=== PATIENT | male | born 1985 | race Caucasian/White ===

== ENCOUNTER 2019-04-17 12:44 | Inpatient (IN) ==
[2019-04-17] MEDS ORDERED: FAMOTIDINE 20MG/5ML IV PUSH IV STA (14:30)
[2019-04-17] MEDS ORDERED: GI COCKTAIL ED USE PO ONE (14:30)
--- NOTE | 2019-04-17 14:48 | XRay Report ---
XR chest 1V portable CLINICAL HISTORY: Atypical chest pain COMPARISON STUDY: No previous studies for comparison. FINDINGS: The heart is normal in size. There is no lobar consolidation. There is subtle interstitial thickening with a basilar predominance. There is no overt failure. There are no pleural effusions.[ IMPRESSION: Subtle nonspecific interstitial thickening with a basilar predominance. No evidence of lo bar consolidation Electronically signed by: Familia Graves M.D. 04/17/2019 2:47 PM
[2019-04-17] MEDS: SODIUM CHLORIDE 0.9% 1000ML 1,000 ML IV SCH ×3 (14:53→20:49)
[2019-04-17 14:54] LABS: Basophils # (auto) 0.06 K/uL (0-0.2); Basophils % (auto) 0.3 %; Eosinophils # (auto) 0.62 K/uL (0-0.5); Eosinophils % (auto) 3.4 %; Hematocrit (blood only) 43.4 % (42-52); Hemoglobin 14.7 g/dL (14.0-18.0); Immature Granulocytes # (auto) 0.04 K/uL (0.00-0.02); Immature Granulocytes % (auto) 0.2 %; Lymphocytes # (auto) 1.74 K/uL (1.2-3.4); Lymphocytes % (auto) 9.7 %; Mean Corpuscular Hemoglobin 31.1 pg (25-34); Mean Corpuscular Hgb Conc 33.9 g/dL (32-36); Mean Corpuscular Volume 91.9 fL (80-100); Mean Platelet Volume 11.1 fL (7.4-10.4); Monocytes # (auto) 1.08 K/uL (0.11-0.59); Neutrophils # (auto) 14.48 K/uL (1.4-6.5); Neutrophils % (auto) 80.4 %; Platelet Count 268 K/uL (130-400); RDW Coefficient of Variation 12.1 % (11.5-14.5); RDW Standard Deviation 41.4 fL (36.4-46.3); Red Blood Count 4.72 M/uL (4.7-6.1); White Blood Count 18.02 K/uL (4.8-10.8)
[2019-04-17 15:12] LABS: Albumin Level 3.9 gm/dl (3.4-5.0); BUN Creatinine Ratio 20.9 (10-20); Calcium 9.6 mg/dl (8.5-10.1); Creatinine Clr Calc Pharmacy 113.1 ml/min; Est GFR (African American) 109.3; Est GFR (Non-African American) 94.3; Potassium 3.8 mmol/L (3.5-5.1)
[2019-04-17 15:15] LABS: Albumin Globulin Ratio 1.4 (0.9-2); Bilirubin,Total 0.8 mg/dl (0.2-1); Globulin 2.8 gm/dl (2.5-4.0); Total Protein 6.7 gm/dl (6.4-8.2)
[2019-04-17] MEDS ORDERED: IOVERSOL 100ml IV PRN (15:48)
--- NOTE | 2019-04-17 16:04 | CT Scan Report ---
CT abd pelvis IV con only CLINICAL HISTORY: 34 years-old Male presenting with Vomiting blood. TECHNIQUE: Multidetector CT of the abdomen and pelvis was performed after the administration of intra venous contrast. IV contrast: 93 mL of Optiray 320. One or more dose lowering techniques were used co nsistent with the principles of ALARA (as low as reasonably achievable), including automatic exposure control, mA or kV adjustment to individual patient size, and/or use of iterative reconstruction. COMPARISON: None. CT DOSE (mGy.cm): The estimated cumulative dose is 519.10 mGy.cm. FINDINGS: Joint Supervisor topogram: Unremarkable. Lung bases: Normal heart size. No pericardial or pleural effusion. Patchy peribronchovascular groundg lass opacity at the lung bases, which may relate to the phase of respiration, atelectasis, or minimal infiltrate. Liver: Normal morphology. No liver lesion. Patent hepatic vasculature. Biliary: No intrahepatic or extrahepatic biliary ductal dilatation. Normal gallbladder. Pancreas: Normal. Spleen: Normal. Adrenal glands: Normal. Kidneys and ureters: Punctate nonobstructing calculus in the right kidney normal renal parenchyma. No hydronephrosis. Ureters nondistended. Bladder: Incompletely evaluated secondary to underdistention. Pelvic organs: Prostate and seminal vesicles normal. Bowel: Normal appendix. No bowel obstruction. Small sliding type hiatal hernia. Mild apparent circumf erential distal esophageal wall thickening versus decompressed hernia sac. No hyperdense intraluminal contents within the stomach or proximal small bowel allowing for bowel distention. Peritoneal cavity: No free fluid or intraperitoneal gas. Lymph nodes: Several prominent portacaval lymph nodes, nonspecific. No pathologically enlarged lymph nodes in the abdomen or pelvis. Vasculature: Aorta and IVC patent and normal in caliber. Abdominal wall: Normal. Musculoskeletal: Normal. IMPRESSION: 1. Small sliding-type hiatal hernia with mild circumferential distal esophageal wall thickening. Thi s could relate to a nonspecific esophagitis or instead apparent wall thickening in the presence of th e hiatal hernia. 2. No convincing evidence of gastroesophageal hemorrhage allowing for bowel distention an limitation s in the sensitivity of CT. 3. Punctate nonobstructing right renal calculus. 4. Patchy peribronchovascular groundglass opacity at the lung bases could relate to the phase of res piration, atelectasis, or minimal infiltrate such as aspiration. Electronically signed by: Lester Paige M.D. 04/17/2019 4:03 PM
[2019-04-17] MEDS ORDERED: PANTOprazole 80 MG in DEXTROSE 5% 100 ML IV ONE (17:00)
[2019-04-17] MEDS ORDERED: ONDANSETRON INJ 2 MG/ML 2 ML VIAL IV PRN (17:20)
[2019-04-17] MEDS ORDERED: ACETAMINOPHEN 325 MG TAB PO PRN (17:20)
--- NOTE | 2019-04-17 17:23 | History & Physical Report ---
Date of Service April 17, 2019 Assessment & Plan (1) Upper gastrointestinal bleed: 34-year-old man presents with hematemesis and melena consistent with upper GI bleed. He is hemodynamically stable and orthostatics are negative. Etiology includes but not limited to a combination of gamf-gnj-kmvgagr Excedrin use in the setting of binge drinking on the weekends and regular smoking. Hiatal hernia noted on imaging. Plan for PPI drip overnight with IV fluids. Keep n.p.o. overnight until seen by GI. Trend H&H. He is not in need of a blood transfusion at this time. (2) Smoking: Advised to stop smoking as it is bad for his health. He declined nicotine patch (3) Alcohol use: Binge drinking habits reported. Will monitor closely for signs of withdrawal. (4) Adjustment disorder: Continue fluoxetine per outpatient regimen. (5) DVT prophylaxis: SCDs, chemoprophylaxis contraindicated in the setting of acute bleed. Full code Disposition-to telemetry DO Omar [place] Hospitalist History of Present Illness Chief Complaint: hematemesis Primary Care Provider: NO PCP 34-year-old man presents with 2 days of hematemesis and black tarry stool as well as discomfort in his epigastric region. He reports heavy drinking on the weekends only including 6-7 drinks at one time. He otherwise denies illicit drug use. He is a smoker reporting approximately 1 pack of cigarettes per week. He also takes Excedrin zgdj-dhu-nnyzonb at least once weekly for headaches. He recently took Excedrin after vomiting a blackish color substance 2 nights ago after drinking. Subsequently they black tarry stool presented itself. He is not orthostatic in the ER. He is otherwise hemodynamically stable. He denies any nausea but is not interested in food. He reports eating to crackers and staying off work today from feeling ill. He denies any other njds-add-rtaaitc or herbal supplement use. He denies any history of GI bleeding in the past. He has no family history of GI bleeding that is known to him. Review of systems otherwise reveals a headache. Allergies Allergy/AdvReac Type Severity Reaction Status Date / Time No Known Allergies Allergy Unverified 04/17/19 15:58 Home Medications Home Medications Medication Instructions Recorded Confirmed Type qkmnhjt-tqirrznpjzcch-sgdmkxmz 2 tab PO UD 04/17/19 04/17/19 History [Excedrin Extra Strength] fluoxetine 40 mg PO QAM 04/17/19 04/17/19 History Past Med/Surg History Medical History Adjustment disorder with depressed mood (Chronic) No known health problems (Resolved) Family History Father Bladder cancer Other No significant family history Social History Preferred Language: [place] marital status: Current Living Situation: Spouse current occupational status: employed current occupation: [employer] Feels Safe at Home: Yes Smoking Status: Current every day smoker Hx Alcohol Use: Yes Hx Substance Use: Yes (History of heroin abuse per records) Review of Systems Review of Systems: All systems reviewed & are unremarkable except as noted in HPI & below Physical Exam Physical Exam: CONSTITUTIONAL: WNWD, vitals as above, generally well- appearing EYES: PERRL, normal conjunctivae, no scleral icterus ENT: MMM NECK: trachea midline RESPIRATORY: clear to auscultation bilaterally, no crackles, rales or wheezes, normal respiratory effort GASTROINTESTINAL: normal bowel sounds, soft, nontender, nondistended MUSCULOSKELETAL: strength 5/5 throughout, head is normocephalic and atraumatic SKIN: warm and dry NEUROLOGIC: CN 2-12 grossly intact, no sensory deficit, normal cognition, normal speech, no gross focal deficits PSYCHIATRIC: alert cooperative and oriented to person, place and time. Results & Data Vital Signs (Past 12 Hours) Vital Signs Temp Pulse Pulse Resp BP BP Pulse Ox 04/17/19 16:35 64 18 128/83 97 04/17/19 15:15 75 18 128/78 100 04/17/19 13:12 36.4 C L 84 17 154/88 H 93 Laboratory Results Short CBC 04/17/19 Range/Units 14:44 WBC 18.02 H (4.8-10.8) K/uL Hgb 14.7 (14.0-18.0) g/dL Hct 43.4 (42-52) % Plt Count 268 (130-400) K/uL BMP 04/17/19 14:44 Sodium 138 Potassium 3.8 Chloride 103 Carbon Dioxide 30 BUN 22 H Creatinine 1.03 Glucose 90 Calcium 9.6 Cardiac Enzymes 04/17/19 Range/Units 14:44 Troponin I 0.022 (0-0.045) ng/ml Liver Function 04/17/19 Range/Units 14:44 Total Bilirubin 0.8 (0.2-1) mg/dl AST 14 L (15-37) U/L ALT 26 (12-78) U/L Alkaline Phosphatase 90 (45-117) U/L Albumin 3.9 (3.4-5.0) gm/dl Diagnostic Findings CT a/p: IMPRESSION: 1. Small sliding-type hiatal hernia with mild circumferential distal esophageal wall thickening. This could relate to a nonspecific esophagitis or instead apparent wall thickening in the presence of the hiatal hernia. 2. No convincing evidence of gastroesophageal hemorrhage allowing for bowel distention an limitations in the sensitivity of CT. 3. Punctate nonobstructing right renal calculus. 4. Patchy peribronchovascular ground glass opacity at the lung bases could relate to the phase of respiration, atelectasis, or minimal infiltrate such as aspiration. XR chest 1V portable CLINICAL HISTORY: Atypical chest pain COMPARISON STUDY: No previous studies for comparison. FINDINGS: The heart is normal in size. There is no lobar consolidation. There is subtle interstitial thickening with a basilar predominance. There is no overt failure. There are no pleural effusions.[ IMPRESSION: Subtle nonspecific interstitial thickening with a basilar predominance. No evidence of lobar consolidation Medications Administered Current Inpatient Medications Acetaminophen (Tylenol) 650 mg PO Q4H PRN PRN Reason: Pain or Fever Stop: 05/17/19 17:19 Fluoxetine HCl (Prozac) 40 mg PO QAM [facility] Stop: 05/18/19 08:59 Pantoprazole Sodium 40 mg/ (Dextrose) 100 mls @ 20 mls/hr IV Q5H TYRA Stop: 05/17/19 17:14 Ioversol (Optiray 320 100ml) 93 ml IV ONCE PRN PRN Reason: Interaction Checking Stop: 04/21/19 15:47 Last Admin: 04/17/19 15:48 Dose: 93 ml Documented by: Ondansetron HCl (Zofran) 4 mg IV Q6H PRN PRN Reason: Nausea Stop: 05/17/19 17:19 Code Status & VTE Plan Code Status Full Code VTE Prophylaxis Plan VTE Prophylaxis will be ordered: Yes
[2019-04-17] MEDS ORDERED: ACETAMINOPHEN 325 MG TAB ONE (18:03)
[2019-04-17] MEDS: PANTOprazole 40 MG in DEXTROSE 5% 100 ML IV SCH ×2 (18:23→23:59)
--- NOTE | 2019-04-17 19:41 | Emergency Department Note ---
Entered by Elidia Booth acting as a scribe for History of Present Illness General Chief complaint: Vomiting Stated complaint: BLACK VOMIT/HEARTBURN Source: patient History of Present Illness Onset (ago): day(s) (last night) Location: abdomen Pain Consistency: + intermittent Maximum Pain Intensity: 4 Quality: + other (vomiting) Associated symptoms: + chest pain and + other (melena, hematemesis, burping) The patient is a 34 year old male who presents to the Emergency Room with complaints of intermittent vomiting starting last night. The patient states that yesterday morning he had a bowel movement of melena. He states that then last night he started vomiting blood. He reports that it was dark like coffee grounds. He reports that he has vomited 4 times like that and in total had a cup of dark vomit. The patient states that then in the middle of the night he woke up with a burning lower middle chest pain. He states that he thought it was heart burn as he has been nonstop burping, but antacids only offer mild relief. He reports that intermittently this morning he has also had shortness of breath. He states that that it feels like he cannot get enough air in. He states that his was concerned and had him call his PCP today. He states that when he tried to make an appointment, they sent him here. The patient notes that he has not moved his bowels since yesterday and that he drinks alcohol only on the wee kends. The patient denies use of blood thinners, a history of a colonoscopy, a history of an EGD, use of steroids, and a daily use of NSAIDs. Home Medications Home Medications Medication Instructions Recorded Confirmed Type qwjrkjf-qpypamklyapsi-zqedodtz 2 tab PO UD 04/17/19 04/17/19 History [Excedrin Extra Strength] fluoxetine 40 mg PO QAM 04/17/19 04/17/19 History Allergies Allergy/AdvReac Type Severity Reaction Status Date / Time No Known Allergies Allergy Unverified 04/17/19 15:58 Past Med/Surg History Medical History Adjustment disorder with depressed mood (Chronic) No known health problems (Resolved) Family History Father Bladder cancer Other No significant family history Social History Preferred Language: [place] Citizen marital status: Current Living Situation: Spouse current occupational status: employed current occupation: Landscaping Feels Safe at Home: Yes Smoking Status: Current every day smoker Hx Alcohol Use: Yes Hx Substance Use: Yes (History of heroin abuse per records) Review of Systems See HPI for pertinent positives & negatives. and A total of 10 systems reviewed and were otherwise negative Physical Exam Vital Signs Vital Signs - 24 hr 04/17/19 13:12 04/17/19 15:15 04/17/19 16:35 Temperature 36.4 C L Temperature Source Oral Sepsis Recent Fever Within 48 Hours No Sepsis New/Unexplained Change in Mental Status No Sepsis Action Taken by Nursing No Action Required Pulse Rate 84 Pulse Rate [Finger] 75 64 Pulse Strength Normal Respiratory Rate 17 18 18 Respiratory Effort / Characteristics Non-Labored Respiratory Depth Normal Respiratory Pattern Regular Blood Pressure 154/88 H Blood Pressure [Right Arm] 128/78 128/83 Blood Pressure Mean 110 Blood Pressure Mean [Right Arm] 94 98 Pulse Oximetry 93 100 97 Oxygen Delivery Method Room Air Room Air Room Air 04/17/19 18:11 Temperature Temperature Source Sepsis Recent Fever Within 48 Hours Sepsis New/Unexplained Change in Mental Status Sepsis Action Taken by Nursing Pulse Rate Pulse Rate [Finger] 62 Pulse Strength Respiratory Rate 20 Respiratory Effort / Characteristics Respiratory Depth Respiratory Pattern Blood Pressure Blood Pressure [Right Arm] 128/91 Blood Pressure Mean Blood Pressure Mean [Right Arm] 103 Pulse Oximetry 98 Oxygen Delivery Method Room Air GENERAL: sitting up in bed, wearing hospital gown, disheveled, no acute distress, nontoxic EYE EXAM: normal conjunctiva, PERRL and EOM's grossly intact OROPHARYNX: no exudate, no erythema, lips, buccal mucosa, and tongue normal and mucous membranes are moist NECK: supple, no nuchal rigidity, no adenopathy, non-tender LUNGS: Clear to auscultation. Normal chest wall mechanics HEART: no murmurs, S1 normal and S2 normal ABDOMEN: abdomen soft, non-tender, normo-active bowel sounds, no masses, no rebound or guarding. RECTAL: Dark stool that is heme positive. BACK: Back is symmetrical on inspection and there is no deformity, no midline tenderness, no CVA tenderness. SKIN: no rashes and no bruising UPPER EXTREMITIES: upper extremities are grossly normal. LOWER EXTREMITIES: No pitting edema. NEURO EXAM: Normal sensorium, cranial nerves II-XII grossly intact, normal speech, no gross weakness of arms, no gross weakness of legs. Course ED COURSE: Vital signs were reviewed and showed situational hypertension. The patients medical record was reviewed The above diagnostic studies were performed and reviewed. ED treatments and interventions as stated above. 1429: The patient was evaluated in room C4. A complete history and physical examination was performed. 1413: I reevaluated the patient and updated him thus far. I preformed a rectal exam at this time. 1622: Upon reevaluation, the patient is resting comfortably. I discussed my findings with the patient and he understands and agrees with the treatment plan. Based on the patients age, coexisting illnesses, exam and lab findings the decision to treat as an outpatient was made. The patient remained stable while under my care. The patient appeared well at the time of discharge. 1636: I discussed the patient's case with Dinorah Sierra PA-C - [facility] Hospitalist. She will evaluate the patient for further management under Dr. Gardner's service. Administered Medications Pantoprazole Sodium 40 mg/ (Dextrose) 100 mls @ 20 mls/hr IV Q5H TYRA Stop: 05/17/19 17:14 Last Admin: 04/17/19 18:23 Dose: 20 mls/hr Documented by: [id number] Ioversol (Optiray 320 100ml) 93 ml IV ONCE PRN PRN Reason: Interaction Checking Stop: 04/21/19 15:47 Last Admin: 04/17/19 15:48 Dose: 93 ml Documented by: [id number] Discontinued Medications Acetaminophen (Tylenol) Confirm Administered Dose 650 mg .ROUTE .STK-MED ONE Stop: 04/17/19 18:04 Last Admin: 04/17/19 18:05 Dose: 650 mg Documented by: [id number] Al Hydrox/Mg Hydrox/Simethicone () 1 dose PO ONE ONE Stop: 04/17/19 14:31 Last Admin: 04/17/19 14:53 Dose: 1 dose Documented by: [id number] Famotidine (Pepcid 20mg Iv Push) 20 mg IV ONE STA Stop: 04/17/19 14:31 Last Admin: 04/17/19 14:53 Dose: 20 mg Documented by: [id number] Sodium Chloride (Nss 1000ml) 1,000 mls @ 999 mls/hr IV .Q1H1M TYRA Stop: 04/17/19 16:30 Last Admin: 04/17/19 18:09 Dose: 999 mls/hr Documented by: [id number] Infusion: 04/17/19 18:05 Dose: 0 mls/hr Documented by: [id number] Admin: 04/17/19 14:53 Dose: 999 mls/hr Documented by: [id number] Pantoprazole Sodium 80 mg/ (Dextrose) 120 mls @ 480 mls/hr IV NOW ONE Stop: 04/17/19 17:14 Last Admin: 04/17/19 18:08 Dose: 480 mls/hr Documented by: [id number] Medical Decision Making Differential Diagnosis Differential diagnoses includes but is not limited to gastritis, peptic ulcer disease, GERD, gallbladder disease, pancreatitis, small bowel obstruction, acute coronary syndrome, pericarditis, ischemic bowel, irritable bowel disease, irritable bowel syndrome, appendicitis, diverticulitis, malignancy, hernia, urinary tract infection, torsion, perforation, trauma, infectious. Medical Records Attestation: I reviewed the patient's medical records. Home Medications Current Medication List: was personally reviewed by me Laboratory Data Attestation: I reviewed the patient's lab results. Result diagrams: 04/17/19 14:44 04/17/19 14:44 Lab Results 04/17/19 04/17/19 04/17/19 Range/Units 14:44 14:44 14:44 WBC 18.02 H (4.8-10.8) K/uL RBC 4.72 (4.7-6.1) M/uL Hgb 14.7 (14.0-18.0) g/dL Hct 43.4 (42-52) % MCV 91.9 (80-100) fL MCH 31.1 (25-34) pg MCHC 33.9 (32-36) g/dL RDW Std Deviation 41.4 (36.4-46.3) fL RDW Coeff of Matt 12.1 (11.5-14.5) % Plt Count 268 (130-400) K/uL MPV 11.1 H (7.4-10.4) fL Immature Gran % (Auto) 0.2 % Neut % (Auto) 80.4 % Lymph % (Auto) 9.7 % Weakley % (Auto) 6.0 % Eos % (Auto) 3.4 % Baso % (Auto) 0.3 % Immature Gran # (Auto) 0.04 H (0.00-0.02) K/uL Neut # (Auto) 14.48 H (1.4-6.5) K/uL Lymph # (Auto) 1.74 (1.2-3.4) K/uL Weakley # (Auto) 1.08 H (0.11-0.59) K/uL Eos # (Auto) 0.62 H (0-0.5) K/uL Baso # (Auto) 0.06 (0-0.2) K/uL Sodium 138 (136-145) mmol/L Potassium 3.8 (3.5-5.1) mmol/L Chloride 103 (98-107) mmol/L Carbon Dioxide 30 (21-32) mmol/L Anion Gap 5.0 (3-11) BUN 22 H (7-18) mg/dl Creatinine 1.03 (0.6-1.4) mg/dl Est Cr Clr Drug Dosing 113.1 ml/min Est GFR ( Amer) 109.3 Est GFR (Non-Af Amer) 94.3 BUN/Creatinine Ratio 20.9 H (10-20) Glucose 90 (70-99) mg/dl Calcium 9.6 (8.5-10.1) mg/dl Total Bilirubin 0.8 (0.2-1) mg/dl AST 14 L (15-37) U/L ALT 26 (12-78) U/L Alkaline Phosphatase 90 (45-117) U/L Troponin I 0.022 (0-0.045) ng/ml Total Protein 6.7 (6.4-8.2) gm/dl Albumin 3.9 (3.4-5.0) gm/dl Globulin 2.8 (2.5-4.0) gm/dl Albumin/Globulin Ratio 1.4 (0.9-2) Lipase 51 L (73-393) U/L Imaging Data Radiologist's Impression: Radiology results as stated below per my review and the radiologist's interpretation: XR chest 1V portable CLINICAL HISTORY: Atypical chest pain COMPARISON STUDY: No previous studies for comparison. FINDINGS: The heart is normal in size. There is no lobar consolidation. There is subtle interstitial thickening with a basilar predominance. There is no overt failure. There are no pleural effusions.[ IMPRESSION: Subtle nonspecific interstitial thickening with a basilar predominance. No evidence of lobar consolidation Electronically signed by: Familia Graves M.D. 04/17/2019 2:[address] abd pelvis IV con only CLINICAL HISTORY: 34 years-old Male presenting with Vomiting blood. TECHNIQUE: Multidetector CT of the abdomen and pelvis was performed after the administration of intravenous contrast. IV contrast: 93 mL of Optiray 320. One or more dose lowering techniques were used consistent with the principles of ALARA (as low as reasonably achievable), including automatic exposure control, mA or kV adjustment to individual patient size, and/or use of iterative reconstruction. COMPARISON: None. CT DOSE (mGy.cm): The estimated cumulative dose is 519.10 mGy.cm. FINDINGS: Esol Teacher topogram: Unremarkable. Lung bases: Normal heart size. No pericardial or pleural effusion. Patchy peribronchovascular groundglass opacity at the lung bases, which may relate to the phase of respiration, atelectasis, or minimal infiltrate. Liver: Normal morphology. No liver lesion. Patent hepatic vasculature. Biliary: No intrahepatic or extrahepatic biliary ductal dilatation. Normal gallbladder. Pancreas: Normal. Spleen: Normal. Adrenal glands: Normal. Kidneys and ureters: Punctate nonobstructing calculus in the right kidney normal renal parenchyma. No hydronephrosis. Ureters nondistended. Bladder: Incompletely evaluated secondary to underdistention. Pelvic organs: Prostate and seminal vesicles normal. Bowel: Normal appendix. No bowel obstruction. Small sliding type hiatal hernia. Mild apparent circumferential distal esophageal wall thickening versus decompressed hernia sac. No hyperdense intraluminal contents within the stomach or proximal small bowel allowing for bowel distention. Peritoneal cavity: No free fluid or intraperitoneal gas. Lymph nodes: Several prominent portacaval lymph nodes, nonspecific. No pathologically enlarged lymph nodes in the abdomen or pelvis. Vasculature: Aorta and IVC patent and normal in caliber. Abdominal wall: Normal. Musculoskeletal: Normal. IMPRESSION: 1. Small sliding-type hiatal hernia with mild circumferential distal esophageal wall thickening. This could relate to a nonspecific esophagitis or instead apparent wall thickening in the presence of the hiatal hernia. 2. No convincing evidence of gastroesophageal hemorrhage allowing for bowel distention an limitations in the sensitivity of CT. 3. Punctate nonobstructing right renal calculus. 4. Patchy peribronchovascular groundglass opacity at the lung bases could relate to the phase of respiration, atelectasis, or minimal infiltrate such as aspiration. Electronically signed by: Lester Paige M.D. 04/17/2019 4:03 PM ECG Data Attestation: I personally reviewed and interpreted this ECG as follows: Indication: other (GI bleed) Rate (beats per minute): 61 Rhythm: sinus rhythm Findings: + other (normal axis, normal intervals); no PVC Blood Pressure Blood Pressure Findings: Elevated blood pressure Blood Pressure Disposition: elevated BP felt to be situational MDM Narrative Patient is a 34-year-old male who presents the ER for hematemesis which occurred on Wednesday. Yesterday he had dark tarry stools. Presents today for epigastric abdominal pain. He denies any history of NSAID abuse, steroid use or heavy drinking. IV was established blood work was obtained. Labs show a leukocytosis of 15,000. No significant anemia. BMP with an elevated BUN. LFTs bilirubin was unremarkable. Troponin was detectable but not positive. Lipase was negative. CT abdomen pelvis shows likely gastritis with a hiatal hernia. Patient was given IV Protonix drip and bolus. Rectally he had dark stools which was heme positive. He was discussed with the hospitalist and admitted for an upper GI bleed. He was given IV fluids as well. He remained stable while in the ER. Impression & Plan Upper gastrointestinal bleed, Hematemesis, Elevated BUN Discharge Plan Visit Data Chief Complaint: Vomiting Stated Complaint: BLACK VOMIT/HEARTBURN ED Provider: Jr Law Discharge Problem: Upper gastrointestinal bleed, Hematemesis, Elevated BUN Patient Disposition: Being Evaluated by Hospitalist Forms Stand Alone Forms: My [facility] Prescriptions Prescriptions: No Action fluoxetine 40 mg capsule 40 mg PO QAM RF: 0 Excedrin Extra Strength 250-250-65 mg Tablet 2 tab PO UD RF: 0 Referrals Referrals: PCP,NO [Primary Care Provider] - Discharge Problem: Hematemesis Qualifiers: Nausea presence: unspecified Qualified Code(s): K92.0 - Hematemesis The scribe's documentation has been prepared under my direction and personally reviewed by me in its entirety. I confirm that the note above accurately reflects all work, treatment, procedures, and medical decision making performed by me.
[2019-04-17 21:22] LABS: Hematocrit (blood only) 37.8 % (42-52); Hemoglobin 13.1 g/dL (14.0-18.0)
[2019-04-18] MEDS: PANTOprazole 40 MG in DEXTROSE 5% 100 ML IV SCH ×3 (04:39→12:38)
[2019-04-18] MEDS: SODIUM CHLORIDE 0.9% 1000ML 1,000 ML IV SCH ×2 (04:40→12:10)
[2019-04-18 05:46] LABS: Hemoglobin 12.3 g/dL (14.0-18.0); Mean Corpuscular Hemoglobin 30.6 pg (25-34); Mean Corpuscular Hgb Conc 33.2 g/dL (32-36); Mean Platelet Volume 10.7 fL (7.4-10.4); Platelet Count 217 K/uL (130-400); RDW Coefficient of Variation 12.2 % (11.5-14.5); RDW Standard Deviation 41.4 fL (36.4-46.3); Red Blood Count 4.02 M/uL (4.7-6.1); White Blood Count 6.91 K/uL (4.8-10.8)
[2019-04-18 06:15] LABS: BUN Creatinine Ratio 13.4 (10-20); Calcium 8.2 mg/dl (8.5-10.1); Creatinine Clr Calc Pharmacy 105.8 ml/min; Est GFR (Non-African American) 87.1; Potassium 3.7 mmol/L (3.5-5.1)
[2019-04-18 08:38] LABS: Appearance Urine Clear (Clear); Bilirubin Urine Negative (Negative); Blood Urine Negative (Negative); Color Urine Yellow; Glucose Urine UA Negative (Negative); Ketones Urine Negative (Negative); Leukocyte Esterase Urine Negative (Negative); Nitrite Urine Negative (Negative); Protein Urine Negative (Negative); Urobilinogen Urine Negative (Negative); pH Urine 6.5 (4.5-7.5)
[2019-04-18] MEDS ORDERED: FLUOXETINE HCL 20 MG CAP PO SCH (09:00)
--- NOTE | 2019-04-18 09:11 | Gastrointestinal Consultation ---
Date of Consultation April 18, 2019 Assessment & Plan (1) Upper gastrointestinal bleed: 34 year old male with epigastric pain, hematemesis/melenatoic stools from Wednesday/Wednesday who presented though the ED last evening for persistent upper abdominal pain - CT w/ ?esophagitis, otherwise negative. He has been hemodynamically stable without further evidence of upper GI bleeding, HGB 12.3 w/o BUN elevation NPO EGD Continue IV PPI Would recommend to slowly reduce ETOH Avoid NSAIDs GERD diet and lifestyle changes Trial PPI therapy, dosage pending outcome of scope Please call with any acute changes, questions or concerns Present on Admission?: Yes Supervising Physician Co-Signing Physician Notes I have performed a history and physical examination of this patient and reviewed the electronic medical record. Specifically, on physical examination there is mild epigastric tenderness. I have discussed the case with GREG Ramirez. The above note reflects my findings, conclusions, and recommendations. Martín Espino MD History of Present Illness Reason for Consultation: hematemesis, melena Requesting Physician: Jj Attending Physician: Sabiha Gardner, History of Present Illness 34 year old male without any past medical history who presented through the ED for evaluation of hematemesis, melena - GI asked to evaluate. Pt was seen and evluated, chart reviewed. He endorses he developed severe epigastric abdominal pain around Wednesday associated w/ bad reflux/regurgitaiton. Tried to take some tums and drink some mild but overall symptoms persisted. Noted later that evening he developed emesis and this was brb w/ some coffee ground appearance as well. The following day he noted dark, tarry stools. Since Wednesday, he has not had any vomiting or melena but notes persistent epigastric pain. No radiation of pain. Worse with PO. Explained as burning and sharp No NSAIDs ETOH 6-8 drinks 2-3 x a week No blood thinners CT: Small sliding-type hiatal hernia with mild circumferential distal esophageal wall thickening. This could relate to a nonspecific esophagitis or instead apparent wall thickening in the presence of the hiatal hernia.No convincing evidence of gastroesophageal hemorrhage allowing for bowel distention an limitations in the sensitivity of CT. EGD/Colon: none Allergies Allergy/AdvReac Type Severity Reaction Status Date / Time No Known Allergies Allergy Unverified 10/14/19 15:58 Home Medications Home Medications Medication Instructions Recorded Confirmed Type ghkajsv-cjlaqnvythdyg-itpxvqpj 2 tab PO UD 04/17/19 04/17/19 History [Excedrin Extra Strength] fluoxetine 40 mg PO QAM 04/17/19 04/17/19 History Patient History Medical History Adjustment disorder with depressed mood (Chronic) No known health problems (Resolved) Family History Father Bladder cancer Other No significant family history Social History Preferred Language: Uzbek Communication Ability: Effective 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 Beliefs That Will Affect Care: None marital status: Current Living Situation: Spouse and Family current occupational status: employed current occupation: [employer] Feels Safe at Home: Yes Safety Concerns: Feels Safe At This Time Smoking Status: Current some day smoker Tobacco Type: cigarettes ; Cigarettes Per Day: 4 ; Hx Alcohol Use: Yes Alcohol type: beer and hard liquor Hx Substance Use: No Review of Systems Constitutional: no fever, no chills and no fatigue Respiratory: no cough, no dyspnea and no pain on inspiration Cardiovascular: no chest pain, no radiating jaw, neck or arm pain and no dyspnea on exertion Gastrointestinal: + abdominal pain, + nausea, + vomiting (none since wednesday), + hematemesis (none since wednesday) and + melena (none since wednesday) Physical Exam Constitutional: WD/WN, vitals as above no acute distress and not ill appearing Respiratory: normal respiratory effort, lungs clear to auscultation Cardiovascular: Rate/Rhythm: regular rate Gastrointestinal (Abdomen): Inspection/Auscultation: normal bowel sounds Percussion/Palpation: + abdomen tender (epigastric) and abdomen soft Skin: no rashes, warm and dry Results & Data Vital Signs (Past 12 Hours) Vital Signs Temp Pulse Pulse Resp BP BP Pulse Ox 04/18/19 07:37 36.5 C 59 L 18 109/70 94 04/18/19 04:42 36.4 C L 62 20 104/67 95 04/18/19 04:00 36.4 C L 51 L 18 99/63 L 96 04/18/19 00:30 67 04/17/19 23:25 36.6 C 50 L 18 109/71 92 04/17/19 21:46 36.8 C 56 L 20 102/66 95 Laboratory Results 04/18/19 04/18/19 04/18/19 Range/Units 07:50 05:25 05:25 WBC 6.91 D (4.8-10.8) K/uL RBC 4.02 L (4.7-6.1) M/uL Hgb 12.3 L (14.0-18.0) g/dL Hct 37.0 L (42-52) % MCV 92.0 (80-100) fL MCH 30.6 (25-34) pg MCHC 33.2 (32-36) g/dL RDW Std Deviation 41.4 (36.4-46.3) fL RDW Coeff of Matt 12.2 (11.5-14.5) % Plt Count 217 (130-400) K/uL MPV 10.7 H (7.4-10.4) fL Immature Gran % (Auto) % Neut % (Auto) % Lymph % (Auto) % [place] % (Auto) % Eos % (Auto) % Baso % (Auto) % Immature Gran # (Auto) (0.00-0.02) K/uL Neut # (Auto) (1.4-6.5) K/uL Lymph # (Auto) (1.2-3.4) K/uL [place] # (Auto) (0.11-0.59) K/uL Eos # (Auto) (0-0.5) K/uL Baso # (Auto) (0-0.2) K/uL Sodium 139 (136-145) mmol/L Potassium 3.7 (3.5-5.1) mmol/L Chloride 105 (98-107) mmol/L Carbon Dioxide 29 (21-32) mmol/L Anion Gap 5.0 (3-11) BUN 15 (7-18) mg/dl Creatinine 1.10 (0.6-1.4) mg/dl Est Cr Clr Drug Dosing 105.8 ml/min Est GFR ( Amer) 101.0 Est GFR (Non-Af Amer) 87.1 BUN/Creatinine Ratio 13.4 (10-20) Glucose 88 (70-99) mg/dl Calcium 8.2 L (8.5-10.1) mg/dl Total Bilirubin (0.2-1) mg/dl AST (15-37) U/L ALT (12-78) U/L Alkaline Phosphatase (45-117) U/L Troponin I (0-0.045) ng/ml Total Protein (6.4-8.2) gm/dl Albumin (3.4-5.0) gm/dl Globulin (2.5-4.0) gm/dl Albumin/Globulin Ratio (0.9-2) Lipase (73-393) U/L Urine Color Yellow Urine Appearance Clear (Clear) Urine pH 6.5 (4.5-7.5) Ur Specific [place] 1.020 (1.000-1.030) Urine Protein Negative (Negative) Urine Glucose (UA) Negative (Negative) Urine Ketones Negative (Negative) Urine Blood Negative (Negative) Urine Nitrite Negative (Negative) Urine Bilirubin Negative (Negative) Urine Urobilinogen Negative (Negative) Ur Leukocyte Esterase Negative (Negative) 04/17/19 04/17/19 04/17/19 Range/Units 21:10 14:44 14:44 WBC (4.8-10.8) K/uL RBC (4.7-6.1) M/uL Hgb 13.1 L (14.0-18.0) g/dL Hct 37.8 L (42-52) % MCV (80-100) fL MCH (25-34) pg MCHC (32-36) g/dL RDW Std Deviation (36.4-46.3) fL RDW Coeff of Matt (11.5-14.5) % Plt Count (130-400) K/uL MPV (7.4-10.4) fL Immature Gran % (Auto) % Neut % (Auto) % Lymph % (Auto) % [place] % (Auto) % Eos % (Auto) % Baso % (Auto) % Immature Gran # (Auto) (0.00-0.02) K/uL Neut # (Auto) (1.4-6.5) K/uL Lymph # (Auto) (1.2-3.4) K/uL [place] # (Auto) (0.11-0.59) K/uL Eos # (Auto) (0-0.5) K/uL Baso # (Auto) (0-0.2) K/uL Sodium 138 (136-145) mmol/L Potassium 3.8 (3.5-5.1) mmol/L Chloride 103 (98-107) mmol/L Carbon Dioxide 30 (21-32) mmol/L Anion Gap 5.0 (3-11) BUN 22 H (7-18) mg/dl Creatinine 1.03 (0.6-1.4) mg/dl Est Cr Clr Drug Dosing 113.1 ml/min Est GFR ( Amer) 109.3 Est GFR (Non-Af Amer) 94.3 BUN/Creatinine Ratio 20.9 H (10-20) Glucose 90 (70-99) mg/dl Calcium 9.6 (8.5-10.1) mg/dl Total Bilirubin 0.8 (0.2-1) mg/dl AST 14 L (15-37) U/L ALT 26 (12-78) U/L Alkaline Phosphatase 90 (45-117) U/L Troponin I 0.022 (0-0.045) ng/ml Total Protein 6.7 (6.4-8.2) gm/dl Albumin 3.9 (3.4-5.0) gm/dl Globulin 2.8 (2.5-4.0) gm/dl Albumin/Globulin Ratio 1.4 (0.9-2) Lipase 51 L (73-393) U/L Urine Color Urine Appearance (Clear) Urine pH (4.5-7.5) Ur Specific [place] (1.000-1.030) Urine Protein (Negative) Urine Glucose (UA) (Negative) Urine Ketones (Negative) Urine Blood (Negative) Urine Nitrite (Negative) Urine Bilirubin (Negative) Urine Urobilinogen (Negative) Ur Leukocyte Esterase (Negative) 04/17/19 Range/Units 14:44 WBC 18.02 H (4.8-10.8) K/uL RBC 4.72 (4.7-6.1) M/uL Hgb 14.7 (14.0-18.0) g/dL Hct 43.4 (42-52) % MCV 91.9 (80-100) fL MCH 31.1 (25-34) pg MCHC 33.9 (32-36) g/dL RDW Std Deviation 41.4 (36.4-46.3) fL RDW Coeff of Matt 12.1 (11.5-14.5) % Plt Count 268 (130-400) K/uL MPV 11.1 H (7.4-10.4) fL Immature Gran % (Auto) 0.2 % Neut % (Auto) 80.4 % Lymph % (Auto) 9.7 % [place] % (Auto) 6.0 % Eos % (Auto) 3.4 % Baso % (Auto) 0.3 % Immature Gran # (Auto) 0.04 H (0.00-0.02) K/uL Neut # (Auto) 14.48 H (1.4-6.5) K/uL Lymph # (Auto) 1.74 (1.2-3.4) K/uL [place] # (Auto) 1.08 H (0.11-0.59) K/uL Eos # (Auto) 0.62 H (0-0.5) K/uL Baso # (Auto) 0.06 (0-0.2) K/uL Sodium (136-145) mmol/L Potassium (3.5-5.1) mmol/L Chloride (98-107) mmol/L Carbon Dioxide (21-32) mmol/L Anion Gap (3-11) BUN (7-18) mg/dl Creatinine (0.6-1.4) mg/dl Est Cr Clr Drug Dosing ml/min Est GFR ( Amer) Est GFR (Non-Af Amer) BUN/Creatinine Ratio (10-20) Glucose (70-99) mg/dl Calcium (8.5-10.1) mg/dl Total Bilirubin (0.2-1) mg/dl AST (15-37) U/L ALT (12-78) U/L Alkaline Phosphatase (45-117) U/L Troponin I (0-0.045) ng/ml Total Protein (6.4-8.2) gm/dl Albumin (3.4-5.0) gm/dl Globulin (2.5-4.0) gm/dl Albumin/Globulin Ratio (0.9-2) Lipase (73-393) U/L Urine Color Urine Appearance (Clear) Urine pH (4.5-7.5) Ur Specific [place] (1.000-1.030) Urine Protein (Negative) Urine Glucose (UA) (Negative) Urine Ketones (Negative) Urine Blood (Negative) Urine Nitrite (Negative) Urine Bilirubin (Negative) Urine Urobilinogen (Negative) Ur Leukocyte Esterase (Negative)
--- NOTE | 2019-04-18 13:20 | Anesthesiology Consultation ---
Date of Service April 18, 2019 Assessment & Plan (1) Encounter for pre-operative examination: Chart Review Chart Review: Acceptable Risk for Surgery and Patient NOT seen in Pre Admission Testing Consults Requested none History Surgery Operation Date: 04/18/19 09:00 Proposed Procedures p Esophagogastroduodenoscopy Dr Linda - Martín Espino MD Height/Weight Height: 5 ft 10 in Weight: 88.6 kg Allergies Allergy/AdvReac Type Severity Reaction Status Date / Time No Known Allergies Allergy Unverified 04/17/19 15:58 Medications Home Medications Medication Instructions Recorded Confirmed Last Taken blxmipi-lomvhkrlilzuy-pydcbgjp 2 tab PO UD 04/17/19 04/17/19 04/16/19 19:00 [Excedrin Extra Strength] fluoxetine 40 mg PO QAM 04/17/19 04/17/19 04/17/19 Active Medications Generic Name Dose Route Start Last Admin Trade Name Freq PRN Reason Stop Dose Admin Fluoxetine HCl 40 mg 04/18/19 09:00 04/18/19 07:58 Prozac PO 05/18/19 08:59 40 mg QAM TYRA Administration Pantoprazole Sodium 40 mg/ 100 mls @ 20 mls/hr 04/17/19 17:15 04/18/19 13:04 Dextrose IV 05/17/19 17:14 0 mls/hr Q5H TYRA Infusion Sodium Chloride 1,000 mls @ 125 mls/hr 04/17/19 20:33 04/18/19 13:05 Nss 1000ml IV 05/17/19 20:32 0 mls/hr .Q8H TYRA Infusion Ioversol 93 ml 04/17/19 15:48 04/17/19 15:48 Optiray 320 100ml IV 04/21/19 15:47 93 ml ONCE PRN Administration Interaction Checking NPO Date Last Intake of Fluids: 04/18/19 Time Last Intake of Fluids: 08:00 Date Last Intake of Solids: 04/18/19 Time Last Intake of Solids: 14:00 Past Medical History Medical History Adjustment disorder with depressed mood (Chronic) No known health problems (Resolved) Past Family History Family History Father Bladder cancer Other No significant family history Social History Smoking Status: Current some day smoker tobacco type: cigarettes Smoking cigarettes per day: 4 Hx Alcohol Use: Yes Alcohol type: beer and hard liquor alcohol intake frequency: a few times a week Hx Substance Use: No Physical Exam Vital Signs Last Vital Signs Temp 36.8 C 04/18/19 12:06 Pulse 60 04/18/19 12:06 Resp 18 04/18/19 12:06 BP 95/59 L 04/18/19 12:06 Pulse Ox 96 04/18/19 12:06 Testing Laboratory Results 04/18/19 05:25 04/18/19 05:25 Urine Color Yellow 04/18/19 07:50 Urine Appearance Clear (Clear) 04/18/19 07:50 Urine pH 6.5 (4.5-7.5) 04/18/19 07:50 Ur Specific [place] 1.020 (1.000-1.030) 04/18/19 07:50 Urine Protein Negative (Negative) 04/18/19 07:50 Urine Glucose (UA) Negative (Negative) 04/18/19 07:50 Urine Ketones Negative (Negative) 04/18/19 07:50 Urine Nitrite Negative (Negative) 04/18/19 07:50 Ur Leukocyte Esterase Negative (Negative) 04/18/19 07:50
[2019-04-18] MEDS ORDERED: ePHEDrine sulfate 50 MG/ML AMP IV PRN (13:23)
[2019-04-18] MEDS ORDERED: ATROPINE SULFATE 0.1 MG/ML 10ML SYR IV PRN (13:23)
[2019-04-18] MEDS ORDERED: PROPOFOL IV EMULSION 10 MG/ML 20 ML VIAL IV ONE (13:24)
[2019-04-18] MEDS ORDERED: LIDOCAINE HCL 2% 2 ML VIAL/AMP(20MG/ML) INFIL ONE (13:24)
[2019-04-18] MEDS ORDERED: fentaNYL citrate 100 MCG/2 ML VIAL ONE (13:24)
--- NOTE | 2019-04-18 13:48 | GI REPORT ---
Patient Name: Panchito Lowery Procedure Date: 04/18/2019 1:29 PM Date of : 1985 Admit Type: Inpatient Age: 34 Gender: Male Attending MD: Martín Espino MD Procedure: Upper GI endoscopy Providers: Martín Espino MD Referring MD: Sabiha Gardner Do Indications: Epigastric abdominal pain, Coffee-ground emesis, Melena Medicines: Monitored Anesthesia Care Complications: No immediate complications. Estimated blood loss: None. Estimated Blood Loss: Estimated blood loss: none. Procedure: Pre-Anesthesia Assessment: - Prior to the procedure, a History and Physical was performed, and patient medications, allergies and sensitivities were reviewed. The patient's tolerance of previous anesthesia was reviewed. - ASA Grade Assessment: II - A patient with mild systemic disease. After obtaining informed consent, the endoscope was passed under direct vision. Throughout the procedure, the patient's blood pressure, pulse, and oxygen saturations were monitored continuously. The Endoscope was introduced through the mouth, and advanced to the third part of duodenum. The upper GI endoscopy was accomplished with ease. The patient tolerated the procedure well. Findings: One cratered esophageal ulcer with no bleeding and no stigmata of recent bleeding was found at the gastroesophageal junction. LA Grade D (one or more mucosal breaks involving at least 75% of esophageal circumference) esophagitis with no bleeding was found at the gastroesophageal junction. A medium-sized hiatal hernia was present. Patchy mildly erythematous mucosa without bleeding was found in the gastric antrum. Biopsies were taken with a cold forceps for Helicobacter pylori testing. The examined duodenum was normal. Verification of patient identification for the specimen was done by the physician and nurse using the patient's name, date and medical record number. Impression: - Non-bleeding esophageal ulcer. - LA Grade D esophagitis. - Medium-sized hiatal hernia. - Erythematous mucosa in the antrum. Biopsied. - Normal examined duodenum. Recommendation: - Repeat upper endoscopy in 1 month to check healing. - [facility] care. Martín Espino M.D. Martín Espino MD 04/18/2019 1:48:18 PM This report has been signed electronically. Note Initiated On: 04/18/2019 1:29 PM Number of Addenda: 0 I attest to the content of the Intraoperative Record and orders documented therein, exceptions below {[id number]}
--- NOTE | 2019-04-18 15:17 | Anesthesiology Progress Note ---
Date of Service April 18, 2019 Anesthesia Post Procedure Vital Signs Vital Signs: Temp Pulse Pulse Resp BP BP Pulse Ox 04/18/19 14:20 54 L 16 114/80 96 04/18/19 14:05 54 L 16 115/75 97 04/18/19 13:50 36.6 C 63 16 111/72 96 04/18/19 13:10 36.7 C 52 L 20 104/66 99 04/18/19 12:06 36.8 C 60 18 95/59 L 96 04/18/19 07:37 36.5 C 59 L 18 109/70 94 04/18/19 04:42 36.4 C L 62 20 104/67 95 04/18/19 04:00 36.4 C L 51 L 18 99/63 L 96 04/18/19 00:30 67 04/17/19 23:25 36.6 C 50 L 18 109/71 92 04/17/19 21:46 36.8 C 56 L 20 102/66 95 04/17/19 18:11 62 20 128/91 98 04/17/19 16:35 64 18 128/83 97 Pain Intensity Abdomen: Pain Intensity: 3 Transfer of Care Handoff Completed per policy Notes Mental Status: alert / awake / arousable Patient Amnestic to Procedure: Yes Nausea / Vomiting: adequately controlled Pain: adequately controlled Airway Patency, RR, SpO2: stable & adequate BP & HR: stable & adequate Hydration State: stable & adequate Anesthetic Complications: no major complications apparent and Pt Satisfied with anesthetic care
--- NOTE | 2019-04-18 17:44 | Discharge Summary ---
Date of Service April 18, 2019 Admission HPI Per Admitting Provider 34-year-old man presents with 2 days of hematemesis and black tarry stool as well as discomfort in his epigastric region. He reports heavy drinking on the weekends only including 6-7 drinks at one time. He otherwise denies illicit drug use. He is a smoker reporting approximately 1 pack of cigarettes per week. He also takes Excedrin sanm-kdz-edficbc at least once weekly for headaches. He recently took Excedrin after vomiting a blackish color substance 2 nights ago after drinking. Subsequently they black tarry stool presented itself. He is not orthostatic in the ER. He is otherwise hemodynamically stable. He denies any nausea but is not interested in food. He reports eating to crackers and staying off work today from feeling ill. He denies any other ldsb-bsf-glqwkoe or herbal supplement use. He denies any history of GI bleeding in the past. He has no family history of GI bleeding that is known to him. Review of systems otherwise reveals a headache. Admission Exam Per Admitting Provider CONSTITUTIONAL: WNWD, vitals as above, generally well-appearing EYES: PERRL, normal conjunctivae, no scleral icterus ENT: MMM NECK: trachea midline RESPIRATORY: clear to auscultation bilaterally, no crackles, rales or wheezes, normal respiratory effort GASTROINTESTINAL: normal bowel sounds, soft, nontender, nondistended MUSCULOSKELETAL: strength 5/5 throughout, head is normocephalic and atraumatic SKIN: warm and dry NEUROLOGIC: CN 2-12 grossly intact, no sensory deficit, normal cognition, normal speech, no gross focal deficits PSYCHIATRIC: alert cooperative and oriented to person, place and time. Principal Diagnosis Nonbleeding esophageal ulcer, esophagitis, medium size hiatal hernia. Discharge Data Allergies Allergy/AdvReac Type Severity Reaction Status Date / Time No Known Allergies Allergy Unverified 04/17/19 15:58 Consultations 04/17/19 16:40 ED Decision to Admit Stat 04/17/19 17:20 Consult Gastroenterology Routine Procedures Performed Operation Date: 04/18/19 09:00 Actual Procedures p EGD Biopsy Cytology - Martín Espino MD Ordered Studies 04/17/19 14:30 CT abd pelvis IV con only Stat Hospital Course (1) Upper gastrointestinal bleed: 34-year-old man presents with hematemesis and melena consistent with upper GI bleed. He was hemodynamically stable and orthostatics were negative. Hiatal hernia noted on imaging. He was placed on a protonix drip and admitted to the Hospitalist service. GI was consulted and recommended upper endoscopy the which revealed a nonbleeding esophageal ulcer, LA Grade D esophagitis, a medium-sized hiatal hernia, and erythematous mucosa in the antrum which was biopsied. He was counseled to cut back on alcohol as he reported some behaviors consistent with binge drinking on the weekends, and counseled to avoid NSAIDs including Excedrin fro the time being. He was sent home on a PPI with biopsy pathology pending. (2) Smoking: Advised to stop smoking as it is bad for his health. He declined nicotine patch (3) Alcohol use: Binge drinking habits reported. No withdrawal during this hospitalization. At time of discharge he was hemodynamically stable and afebrile and was tolerating regular food. He was mentating and ambulating at baseline. Abdomen exam was benign, soft, nondistended and without pain to palpation. Lungs were clear to auscultation and heart exam was normal. WNWD man with warm and dry skin. He was sent home in stable condition with close primary care follow-up recommended. Total Time Total Time Spent Total Time Spent (In Minutes): 60 Total Time Includes: Examination of the Patient, Discharge Planning, Medication Reconciliation and Communication With Other Providers Discharge Plan Discharge Items Patient Disposition: Home - Self-Care Reason For Visit: UPPER GI BLEED Discharge Diagnosis: Nonbleeding esophageal ulcer, esophagitis, medium size hiatal hernia. Activity: Resume your previous activity Non-emergency contact: Primary Care Provider and Utilization Management Manager Call non-emergency contact if: you have any medication questions, your symptoms worsen, your pain is not controlled, your pain is worsening, your pain is unusual for you, your pain is concerning for you and you have a fever Follow-up/Referrals: Martín Espino MD [Physician] - Mesfin Richardson MD [Physician] - Diet: Regular Addtl Attending Provider Instructions: Please avoid ibuprofen, Aleve, Motrin, aspirin including Excedrin or other NSAIDs fuvx-bho-wvwfbre medications until repeat follow-up with gastroenterology. It is recommended that you undergo a repeat endoscopy in 1 month with [facility] to check healing of your ulcer. In the meantime he will be on a new medication called pantoprazole 40 mg twice daily. It is strongly recommended that you decrease your alcohol intake to a more reasonable intake, such as 1-2 drinks in a sitting. It is strongly recommended that you stop smoking as this is bad for your health. Please follow-up with your primary care doctor within 1 week of discharge from the hospital. It was a pleasure taking care of you! Please call if you have any questions or problems. You can reach a [facility] hospitalist on duty at [facility] 24 hours a day by calling [phone]. Take care of yourself. Sabiha Gardner, DO [facility] Pending Studies at Discharge: Yes Studies:: Biopsy of esophageal ulceration Visit Report Forms: Smoking Cessation Stand-Alone Forms: My [facility], Work/School Release (Inpt) Medications and DC Order Prescriptions: New pantoprazole 40 mg Tablet,Delayed Release (Dr/Ec) 40 mg PO BID Qty: 60 RF: 1 Continued fluoxetine 40 mg capsule 40 mg PO QAM RF: 0 Discontinued Excedrin Extra Strength 250-250-65 mg Tablet 2 tab PO UD RF: 0 Discharge Orders: Discharge Order (Routine); Ordered 04/18/19 Ordered By: Sabiha Gardner Admission Data Admit Date/Time: 04/17/19 17:20 Attending Provider: Sabiha Gardner Admit Provider: Sabiha Gardner Primary Care Provider: PCP,NO Other Providers: Martín Espino Other Interventions: Discharge Summary Assessment (RN) Last Done: 04/18/19 17:55 DC Date/Time DO NOT enter until pt leaves facility: 04/18/19 18:12
[2019-04-18] MEDS ORDERED: PANTOprazole 40 MG TAB PO SCH (21:00)
== END 2019-04-18 18:12 | disposition home or self-care (01) | DRG 382 ==
LOC: ED 12:44 → 2N 17:20
DX: F43.20 Adjustment disorder, unspecified; F17.210 Nicotine dependence, cigarettes, uncomplicated; Z72.89 Other problems related to lifestyle; Z79.899 Other long term (current) drug therapy; K22.11 Ulcer of esophagus with bleeding